=== PATIENT | female | born 1985 | race American Indian/Alaskan Native ===

== ENCOUNTER 2020-06-27 08:14 | Outpatient (CLI) | payer BC ==
--- NOTE | 2020-06-27 09:15 | Mammography Report ---
DIGITAL SCREENING MAMMOGRAM WITH CAD, 06/27/2020 INDICATION: Routine screening mammography. TECHNIQUE: Digital bilateral 2D mammography was obtained in the craniocaudal and mediolateral obliq ue projections. This examination was interpreted with the benefit of Computer-Aided Detection analysi s. COMPARISON: 07/08/2019. FINDINGS: Breast Density: The breasts are heterogeneously dense, which may obscure small masses. There is no evidence of dominant mass, suspicious calcifications or architectural distortion in eithe r breast. Increasing nodularity upper outer quadrant left breast. IMPRESSION: Follow up recommendation: Ultrasound BI-RADS Category 0: Incomplete. Needs additional imaging evaluation and/or prior mammograms for daniel rison. A "normal" or negative report should not discourage follow up or biopsy of a clinically significant f inding. A written summary of these findings will be mailed to the patient. The patient will be entered into a mammography reporting system which will generate a reminder letter for the patient's next appointmen t at the appropriate interval. The [employer] recommends yearly mammograms starting at age 40 and continuing as l johana as a woman is in good health. Breast MRI is recommended for women with an approximate 20-25% or greater lifetime risk of breast cancer, including women with a strong family history of breast or ova loly cancer or who have been treated for Hodgkin's disease. Signer Name: Cristobal Hebert MD Signed: 06/27/2020 9:10 AM Workstation Name: [id number]
== END 2020-06-27 08:15 | disposition home or self-care (01) ==
LOC: SPVWC 08:14
PROVIDERS: ATTEND Surgery
DX: Z12.31 Encounter for screening mammogram for malignant neoplasm of breast (principal)
CPT/HCPCS: 77067

== ENCOUNTER 2020-07-12 11:09 | Outpatient (CLI) | payer BC ==
--- NOTE | 2020-07-15 08:03 | Ultrasound Report ---
ULTRASOUND BREAST LEFT COMPLETE, 07/12/2020 CLINICAL INFORMATION / INDICATION: ABNORMAL MAMMOGRAM. TECHNIQUE: Complete sonographic evaluation of all 4 quadrants and retroareolar region was performed. COMPARISON: Recent mammogram 06/27/2020 FINDINGS: In the left breast at 1:00, 8 cm from nipple, there is an oval macrolobulated solid mass measuring 1. 5 x 0.9 x 1.5 cm. This corresponds to nodularity seen on recent screening mammogram. Additionally there is a hypoechoic well-circumscribed oval mass in the 1:00 position, 6 cm from nippl e measuring 1.9 x 1.4 cm. I believe this probably represents a complicated cyst. Additional fibrocyst ic areas are seen throughout the remainder of the breast mostly in the lateral aspect of the breast. IMPRESSION: 1. 15 mm solid oval mass is present in the left breast at 1:00. This may represent a fibroadenoma. Ho inge, ultrasound-guided biopsy is recommended due to interval change mammographically. 2. 19 mm oval mass at 1:00, left breast. I believe this will probably represent a cyst. At the time o f biopsy, cyst aspiration is recommended. Follow up recommendation: Biopsy BI-RADS Category 4: Suspicious for Malignancy. A normal or "negative" report should not preclude biopsy or follow-up of a clinically suspicious find ing. Signer Name: Mira Emerson MD Signed: 07/12/2020 12:15 PM Workstation Name: [id number]
== END 2020-07-12 11:10 | disposition home or self-care (01) ==
LOC: SPVWC 11:09
PROVIDERS: ATTEND Surgery
DX: N63.21 Unspecified lump in the left breast, upper outer quadrant (principal); N60.12 Diffuse cystic mastopathy of left breast

== ENCOUNTER 2020-08-02 08:27 | Outpatient (CLI) | payer BC ==
--- NOTE | 2020-08-02 10:52 | Mammography Report ---
DIGITAL DIAGNOSTIC MAMMOGRAM WITH CAD CONVENTIONAL, 08/02/2020 CLINICAL INFORMATION / INDICATION: Post ultrasound-guided biopsy and aspiration TECHNIQUE: Digital left mammographic imaging was performed. This examination was interpreted with the benefit of Computer-aided Detection analysis. COMPARISON: Screening mammogram 06/27/2020 FINDINGS: Breast Density: The breasts are heterogeneously dense, which may obscure small masses. Clip from the biopsy of the nodule is seen in the far upper outer quadrant. Sonographically the clip was placed within the lesion. A previous nodular lesion is less obvious now. The clip associated with the cyst aspiration is seen more inferiorly and medially in the more central portion of the breast w ithout a radiographic correlate. IMPRESSION: Satisfactory clip placements Follow up recommendation: Per biopsy results Post biopsy imaging. A "normal" or negative report should not discourage follow up or biopsy of a clinically significant f inding. A written summary of these findings will be mailed to the patient. The patient will be entered into a mammography reporting system which will generate a reminder letter for the patient's next appointmen t at the appropriate interval. According to the [employer], yearly mammograms are recommended starting at age 40 and continuing as long as a woman is in good health. Breast MRI is recommended for women with an merlyn roximately 20-25% or greater lifetime risk of breast cancer, including women with a strong family his tory of breast or ovarian cancer and women who have been treated for Hodgkin's disease. Signer Name: Amandeep Meyer MD Signed: 08/02/2020 10:48 AM Workstation Name: [id number]
--- NOTE | 2020-08-02 17:22 | Ultrasound Report ---
ULTRASOUND-GUIDED LEFT BREAST BIOPSY INDICATION: Enlarging solid nodule COMPARISON: Left breast ultrasound 07/12/2020 CONSENT: Procedure was discussed at length in advance with the patient. Possible risks and benefits w ere discussed including the possibility of bleeding. Postbiopsy care was discussed. Opportunity for q uestions was provided. Patient is not on anticoagulant therapy and reports no pertinent allergies. PROCEDURE: Timeout was performed. The nodule at 1:00, 8 cm the nipple was targeted sonographically. U sing aseptic technique and under local anesthesia, with real-time sonographic guidance, the area of i nterest was biopsied. Multiple specimens were obtained with a 12-gauge Celero biopsy device and sent to pathology for analysis. A metallic clip was placed at the end of the procedure. Site was secured a nd the patient was sent for post biopsy mammogram. Patient tolerated the procedure well and left the department in good condition. IMPRESSION: Successful ultrasound-guided left breast biopsy ULTRASOUND-GUIDED LEFT BREAST CYST ASPIRATION INDICATION: Moderate-sized left breast cyst as previously described with mild suspicion on recent ult rasound COMPARISON: Left breast ultrasound 06/28/2020 PROCEDURE: Timeout was performed. Under direct sonographic guidance after liberal local anesthesia, a 22-gauge spinal needle was directed into the cyst in the 1:00 position, 6 cm from the nipple, in the deep breast tissue. 2 cc of cloudy yellowish fluid were obtained. These were placed in the appropria te container for cytologic analysis. The cyst was nearly collapsed by the end of the procedure. A cli p was left at the site. Patient tolerated the procedure well with no obvious complications. IMPRESSION: Successful ultrasound-guided left breast cyst aspiration Signer Name: Amandeep Meyer MD Signed: 08/02/2020 5:18 PM Workstation Name: [id number]
--- NOTE | 2020-08-04 10:45 | Ultrasound Report ---
See combined report. Signer Name: Amandeep Meyer MD Signed: 08/04/2020 10:40 AM Workstation Name: [id number]
== END 2020-08-02 08:28 | disposition home or self-care (01) ==
LOC: SPVWC 08:27
PROVIDERS: ATTEND Surgery
DX: N63.21 Unspecified lump in the left breast, upper outer quadrant (principal); D24.2 Benign neoplasm of left breast; N60.02 Solitary cyst of left breast; K21.9 Gastro-esophageal reflux disease without esophagitis; R92.8 Other abnormal and inconclusive findings on diagnostic imaging of breast; Z98.890 Other specified postprocedural states
CPT/HCPCS: 88112; 88305

== ENCOUNTER 2021-07-25 14:28 | Outpatient (CLI) | payer BC ==
--- NOTE | 2021-07-26 16:33 | Mammography Report ---
DIGITAL SCREENING MAMMOGRAM WITH CAD, 07/25/2021 CLINICAL INFORMATION / INDICATION: Routine screening TECHNIQUE: Digital bilateral 2D mammography was obtained in the craniocaudal and mediolateral obliqu e projections. This examination was interpreted with the benefit of Computer-Aided Detection analysis . COMPARISON: 06/27/2020, 08/02/2020 FINDINGS: Breast Density: The breasts are heterogeneously dense, which may obscure small masses. No dominant mass, suspicious calcifications, or architectural distortion in either breast. Left biopsy changes are again seen at 2 sites. Mild left nodularity is again seen. IMPRESSION: No mammographic evidence of malignancy. Follow up recommendation: Clinical attention to patient's complaint of intermittent left upper outer breast pain is suggested. Ultrasound could be performed if this is thought significant. BI-RADS Category 2: BENIGN. A "normal" or negative report should not discourage follow up or biopsy of a clinically significant f inding. A written summary of these findings will be mailed to the patient. The patient will be entered into a mammography reporting system which will generate a reminder letter for the patient's next appointmen t at the appropriate interval. The [employer] recommends yearly mammograms starting at age 40 and continuing as l johana as a woman is in good health. Breast MRI is recommended for women with an approximate 20-25% or greater lifetime risk of breast cancer, including women with a strong family history of breast or ova loly cancer or who have been treated for Hodgkin's disease. Signer Name: Amandeep Meyer MD Signed: 07/26/2021 4:29 PM Workstation Name: [id number]
== END 2021-07-25 14:29 | disposition home or self-care (01) ==
LOC: SPVWC 14:28
PROVIDERS: ATTEND Surgery
DX: Z12.31 Encounter for screening mammogram for malignant neoplasm of breast (principal); N64.89 Other specified disorders of breast
CPT/HCPCS: 77067